=== PATIENT | female | born 1990 | race African-American/Black ===

== ENCOUNTER 2019-08-03 19:18 | Observation (INO) | payer MEDICAID, OTHER ==
[~2019-08-03] VITALS: Ht 149.9 cm; Wt 65.8 kg
[2019-08-03 20:06] VITALS: BP 112/69
== END 2019-08-03 21:00 | disposition home or self-care (01) | DRG 566 ==
LOC: ER 19:18 → LDRP 20:13
PROVIDERS: ADMIT Obstetrics & Gynecology; ATTEND Obstetrics & Gynecology
DX: O9A.212 Injury, poisoning and certain other consequences of external causes complicating pregnancy, second trimester (principal); R10.9 Unspecified abdominal pain; W19.XXXA Unspecified fall, initial encounter; Y93.89 Activity, other specified; Y92.512 Supermarket, store or market as the place of occurrence of the external cause; Z3A.17 17 weeks gestation of pregnancy
CPT/HCPCS: 59025; 81002; G0378